=== PATIENT | female | born 1955 | race Two or more races ===

== ENCOUNTER 2024-07-01 15:01 | Outpatient (AMB) | payer OTHER, SELFPAY ==
--- NOTE | 2024-07-01 15:03 | MHC.PC.OV ---
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 Hammerer Tab Required: No Allergies cashew nut Allergy (Severe, Verified 07/01/24 15:09) Anaphylaxis peanuts Allergy (Severe, Uncoded 07/01/24 15:09) Anaphylaxis Medication List - Last Reconciled 07/01/24 by Nikolas Heredia MD atorvastatin 40 mg PO DAILY hydrochlorothiazide 25 mg PO DAILY lisinopril 40 mg PO DAILY metformin ER 1,000 mg PO BID Tobacco use date assessed: 07/01/24 Dental Screening Dental Screen Date: 07/01/24 Did you have a dental visit in the last 12 months?: No Did you have a dental problem in the last 6 months where you did not have access to dental care?: No Was dental information given to patient?: Yes HPI 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 ?? Prior PCP:? Mariah Montesinos [facility]. Saw Kristin Alicea [facility] Last office visit/CPE:? 2 yrs Acute issue(s):? ?? PMHx:?HTN, DM2, HLD SurgHx:? GB, Ventral Hernia FHx:?Mom: DM, Pancreatic CA. Dad: DM. Brothers: DM, Oldest Brother: Pancreatic CA. SocHx: Quit cigs > 20 yrs ago. No EtOH. No drugs PFSH Medical History (Updated 07/01/24 @ 15:57 by Nikolas Heredia MD) Hx of migraine headaches Diabetes High cholesterol High blood pressure Surgical History (Updated 07/01/24 @ 15:29 by Sammie Davidson) History of hernia repair Social History Housing: Apartment Patient Tobacco Use Status: Never used Tobacco e-Cigarette/Vaping Use: Never Used Second Hand Smoke Exposure: No service: No Current occupational status: retired Current occupational exposures/hazards: No Cognitive needs: No Hearing needs: No Vision needs: Yes Questionnaire PHQ-9 Over the last 2 weeks, how often have you been bothered by any of the following problems? 1. Little interest or pleasure in doing things: not at all 2. Feeling down, depressed, or hopeless: not at all 3. Trouble falling or staying asleep, or sleeping too much: not at all 4. Feeling tired or having little energy: nearly every day 5. Poor appetite or overeating: several days 6. Feeling bad about yourself - or that you are a failure or have let yourself or your family down: not at all 7. Trouble concentrating on things, such as reading the newspaper or watching television: nearly every day 8. Moving or speaking so slowly that other people could have noticed. Or the opposite - being so fidgety or restless that you have been moving around a lot more than usual: more than half the days 9. Thoughts that you would be better off or of hurting yourself in some way: not at all Total score: 9 Depression Screening Interpretation: Positive Depression Screening Done: Yes 57889 - PHQ-9 Billing: Yes Source: Developed by Drs. Ankit Davila, Gale Patricia, Jacob Mancilla and colleagues, with an educational iain from [employer]. Thrive Questionnaire Date Thrive assessed: 07/01/24 I am a: Patient What is your living situation today?: I do not have a steady places to live Within the past 12 months, did the food you bought not last and you didn't have the money to get more?: I choose not to answer this question Within the past 12 months, did you worry whether your food would run out before you got money to buy more?: I choose not to answer this question Do you have trouble paying for medicines?: No Do you have trouble getting transportation to medical appointments?: No Do you have trouble paying your heating and electricity bill?: I choose not to answer this question Do you have trouble taking care of your child, family member or friend?: I choose not to answer this question Do you have trouble with day-to-day activities such as bathing, preparing meals, shopping, managing finances, etc.?: I choose not to answer this question Are you currently unemployed and looking for a job?: No Are you interested in more education?: No Please select the resources that you would like help with: Housing/Residential Currently or been in a relationship where the following occur: I choose not to answer THRIVE Score: 1 AUDIT C Alcohol Use Questionnaire (AUDIT-C) 1. How often do you have a drink containing alcohol?: Never 3. How often do you have six or more drinks on one occasion?: Never Total Score: 0 HIMA-7 AMB Questionnaire HIMA-7 Date HIMA - 7 assessed: 07/01/24 Feeling nervous, anxious, or on edge: 0 = Not at all Not being able to stop or control worryin = Several days Worrying too much about different things: 2 = More than half the days Trouble relaxin = Nearly every day Being so restless that it is hard to sit still: 1 = Several days Becoming easily annoyed or irritable: 0 = Not at all Feeling afraid as if something awful might happen: 0 = Not at all Total HIMA-7 score (0-4 normal; 5-9 mild; 10-14 moderate; 15-21 severe): 7 Source: Developed by Drs. Ankit Davila, Gale Patricia, Jacob Mancilla and colleagues, with an educational iain from [employer]. HIMA-7 Assessment Billing HIMA-7 Assessment Tool: HIMA-7 Assessment 31890 Review of Systems Const Denies chills, Denies fatigue, Denies fever(s), Denies headache(s) and Denies weakness ENT Denies dizziness and Denies headache(s) Card Denies chest pain, Denies lightheadedness, Denies dyspnea and Denies other (Palpitations) Resp Denies cough, Denies dyspnea, Denies wheezing and Denies other ( shortness of breath) Musc Denies numbness and Denies tingling Neuro Denies dizziness, Denies headache(s), Denies numbness, Denies tingling, Denies paresthesias and Denies weakness Psych Denies anxiety and Denies depression Endo Denies fatigue Aller/Immun Denies wheezing Physical exam (Primary Care) Depression Screening Interpretation: Positive Currently or been in a relationship where the following occur: I choose not to answer Const General: no acute distress and well developed Nutritional Appearance: well nourished Orientation/consciousness: patient oriented x3 HENMT Head: Yes normocephalic and Yes atraumatic Eyes General: appearance normal, both eyes and all related structures Pupils: Equal, round and reactive pupils present EOM: EOMs intact bilaterally Resp Effort & Inspection: normal respiratory effort Auscultation: clear to auscultation bilaterally Cardio Rate: regular rate Rhythm: regular rhythm Heart sounds: S1 normal heart sound present, S2 normal heart sound present, no gallops, no murmurs and no rubs Neuro General: patient oriented x3 and gait normal Cranial nerves: Yes Equal, round and reactive pupils present Psych Affect: normal affect Coding Level of Care Code New Pt Level 3 (26646) Diagnoses Essential hypertension I10 Diabetes type 2 E11.9 Hyperlipidemia E78.5 Laboratory exam ordered as part of routine general medical examination Z00.00 SOB (shortness of breath) R06.02 Additional Codes HIMA-7 Assessment Billing - HIMA-7 Assessment Tool: HIMA-7 Assessment 46241 ([id number]) PHQ-9 - 27515 - PHQ-9 Billing: Yes ([id number]) Assessment & Plan Assessment & Plan (1) Essential hypertension: Code(s): I10 - Essential (primary) hypertension Category: Medical Plan: Blood?pressure?is?high.??Goal?is?less?than?140/90 She?has?been?off?of?her?medications.??Will?resume?these (2) Diabetes type 2: Code(s): E11.9 - Type 2 diabetes mellitus without complications Category: Medical Plan: Patient?has?been?off?of?metformin?since?April. A1c?is?7.8%.??Goal?is?less?than?7% Will?resume?metformin?at?500?mg?b.i.d.?and?will?add?glipizide?ER?5?mg?q.a.m. (3) Hyperlipidemia: Code(s): E78.5 - Hyperlipidemia, unspecified Category: Medical Plan: Check?labs Resume?atorvastatin (4) Laboratory exam ordered as part of routine general medical examination: Code(s): Z00.00 - Encounter for general adult medical examination without abnormal findings Category: Medical Plan: Check labs (5) SOB (shortness of breath): Code(s): R06.02 - Shortness of breath Category: Medical Plan: Complaint?of?SOB?without?chest?pain. Minimal?cough Lungs?are?clear?to?auscultation?bilaterally?with?good?air?movement Check?chest?x-ray Orders: Orders Comprehensive [place]. Panel Fast Today Z00.00 - Encounter for general adult medical examination without abnormal findings Lipid Panel Today Z00.00 - Encounter for general adult medical examination without abnormal findings XR chest 2V Today R06.02 - Shortness of breath Microalbumin, Random (w Creat) Today I10 - Essential (primary) hypertension TSH reflex Free T4 Today Z00.00 - Encounter for general adult medical examination without abnormal findings UA and rflx microscopic Today Z00.00 - Encounter for general adult medical examination without abnormal findings Hemoglobin A1c Today R73.01 - Impaired fasting glucose Medications: New metformin ER 500 mg PO BID 90 days 180 tabs 2RF hydrochlorothiazide 25 mg PO DAILY 90 days 90 tabs 3RF glipizide ER 5 mg PO QAM 90 days 90 tabs 2RF lisinopril 40 mg PO DAILY 90 days 90 tabs 3RF atorvastatin 40 mg PO DAILY 90 days 90 tabs 3RF
[2024-07-01 15:20] VITALS: BP 160/84; PULSE 66; RESP 16; TEMP 36.6; O2SAT 97; BMI 36.4
== END 2024-07-01 16:02 | disposition home or self-care (01) ==
PROVIDERS: PCP Family Medicine; Visit Provider Family Medicine
DX: I10 Essential (primary) hypertension (principal); E11.9 Type 2 diabetes mellitus without complications; E78.5 Hyperlipidemia, unspecified; Z00.00 Encounter for general adult medical examination without abnormal findings; R06.02 Shortness of breath

== ENCOUNTER → 2024-07-01 15:01 | Outpatient (BNVA) | payer OTHER, SELFPAY | PROVIDERS: PCP Family Medicine; Visit Provider Family Medicine | DX: Z00.00 Encounter for general adult medical examination without abnormal findings (principal); I10 Essential (primary) hypertension; E11.9 Type 2 diabetes mellitus without complications; E78.5 Hyperlipidemia, unspecified; R06.02 Shortness of breath | CPT/HCPCS: 96127 ==

== ENCOUNTER 2024-09-18 09:05 | Outpatient (AMB) | payer OTHER, SELFPAY ==
--- NOTE | 2024-09-18 09:06 | MHC.PC.OV ---
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 Hand Required: Yes Apprentice Painter Hand Language: Wardrobe Technician Name: pt refused Crew Boss: Present Accompanied by: Son Allergies cashew nut Allergy (Severe, Verified 09/18/24 09:12) Anaphylaxis peanuts Allergy (Severe, Uncoded 07/01/24 15:09) Anaphylaxis Medication List - Last Reconciled 09/18/24 by Nikolas Heredia MD atorvastatin 40 mg PO DAILY 90 days glipizide ER 5 mg PO QAM 90 days hydrochlorothiazide 25 mg PO DAILY 90 days lisinopril 40 mg PO DAILY 90 days metformin ER 500 mg PO BID 90 days Tobacco use date assessed: 07/01/24 Dental Screening Dental Screen Date: 07/01/24 HPI f/u DM, HTN HPI Details 68 y/o female presents to f/u DM, HTN. Blood pressure today 130/78. She is on lisinopril 40mg, HCTZ 25mg daily. She is on glipizide 5mg, metformin 500mg b.i.d. for her diabetes. A1c 8.0%. Reports ongoing shortness of breath. Recent chest x-ray was fine. [facility] Medical History (Updated 09/18/24 @ 09:59 by Nikolas Heredia MD) Hx of migraine headaches Diabetes High cholesterol High blood pressure Surgical History (Updated 07/01/24 @ 15:29 by Sammie Davidson MA) History of hernia repair Social History Housing: Apartment Patient Tobacco Use Status: Never used Tobacco e-Cigarette/Vaping Use: Never Used Second Hand Smoke Exposure: No service: No Current occupational status: retired Current occupational exposures/hazards: No Cognitive needs: No Hearing needs: No Vision needs: Yes Questionnaire Thrive Questionnaire Date Thrive assessed: 07/01/24 HIMA-7 AMB Questionnaire HIMA-7 Date HIMA - 7 assessed: 07/01/24 Source: Developed by Drs. Ankit Davila, Gale Patricia, Jacob Mancilla and colleagues, with an educational iain from [employer]. Review of Systems Const Denies chills, Denies fatigue, Denies fever(s), Denies headache(s) and Denies weakness ENT Denies dizziness and Denies headache(s) Card Reports dyspnea Resp Denies cough, Reports dyspnea, Denies wheezing and Denies other (shortness of breath) Musc Denies numbness and Denies tingling Neuro Denies dizziness, Denies headache(s), Denies numbness, Denies tingling and Denies weakness Psych Denies anxiety and Denies depression Endo Denies fatigue Aller/Immun Denies wheezing Physical exam (Primary Care) Vital Signs: Last Vital Signs Temp 98.1 F 09/18/24 09:13 Pulse 74 09/18/24 09:13 Resp 16 09/18/24 09:13 BP 130/78 09/18/24 09:13 Pulse Ox 95 09/18/24 09:13 Oxygen Delivery Method Room Air 09/18/24 09:13 BMI result Body Mass Index 37.2 Tobacco/Smoking Status: Tobacco use Status Tobacco use date assessed 07/01/24 09/18/24 09:07 Patient Tobacco Use Status Never used Tobacco 09/18/24 09:07 e-Cigarette/Vaping Use Never Used 09/18/24 09:07 Thrive Assessment: Date of Thrive Assessment Date Thrive assessed 07/01/24 09/18/24 09:07 Const General: well developed; No acute distress Nutritional Appearance: well nourished Orientation/consciousness: patient oriented x3 HENMT Head: Yes normocephalic and Yes atraumatic Eyes General: appearance normal, both eyes and all related structures Pupils: Equal, round and reactive pupils present EOM: EOMs intact bilaterally Resp Effort & Inspection: normal respiratory effort Auscultation: clear to auscultation bilaterally Cardio Rate: regular rate Rhythm: regular rhythm Heart sounds: S1 normal heart sound present, S2 normal heart sound present, no gallops, no murmurs and no rubs Neuro General: patient oriented x3 and gait normal Cranial nerves: Yes Equal, round and reactive pupils present Psych Affect: normal affect Coding Level of Care Code Est Pt Level 4 (87370) Diagnoses Essential hypertension I10 Diabetes type 2 E11.9 Hyperlipidemia E78.5 SOB (shortness of breath) R06.02 Sleep apnea G47.30 Assessment & Plan Assessment & Plan (1) Essential hypertension: Code(s): I10 - Essential (primary) hypertension Category: Medical Plan: Blood?pressure?is?improved?and?controlled?on?current?medication; lisinopril?40?mg?daily?and?hydrochlorothiazide?25?mg?daily. Goal?is?less?than?140/90 Continue?current?medications (2) Diabetes type 2: Code(s): E11.9 - Type 2 diabetes mellitus without complications Category: Medical Plan: Patient?had?been?off?her?medication?at?her?initial?visit?in?June. Has?now?resumed?metformin?500?mg?b.i.d.?and?glipizide?ER?5?mg?daily A1c?today: ?8.0%. Poor?control.??Goal?is?less?than?7.0% She?started?her?medication?regimen?about?2?months?ago?so should?be?close?to?steady?state?now Will?increase?metformin?from?500?mg?b.i.d.?to?750?mg?b.i.d. Close?follow-up;?will?have?her?return?about?2?months. (3) Hyperlipidemia: Code(s): E78.5 - Hyperlipidemia, unspecified Category: Medical Plan: LDL?cholesterol?157?is?by HDL?41 She?resumed?atorvastatin?which?she?will?continue (4) SOB (shortness of breath): Code(s): R06.02 - Shortness of breath Category: Medical Plan: Ongoing?shortness?of?breath Chest?x-ray?is?clear Patient?describes?2?different?situations.??She?gets?some?wheezing?with?cold?dry?air. She?also?notes?some?gasping and?awakening?at?night?with?discomfort-see?below Dry?an?albuterol?inhaler?for?the?wheezing.??Also?advised?humidified?air. (5) Sleep apnea: Code(s): G47.30 - Sleep apnea, unspecified Category: Medical Plan: Some?gasping?at?night?with?shortness?of?breath?and?some?chest?discomfort. EKG: ?Normal?sinus?rhythm,?normal?axis,?normal?intervals,?no?hypertrophy,?no?ST-T-wave?changes. Her?son?also?notes?that?she?falls?asleep?a?lot?during?the?day. Referred?to?Sleep?Medicine Orders: Referrals Sleep Medicine Referral G47.30 - Sleep apnea, unspecified Medications: New albuterol sulfate 90 mcg/actuation (Ventolin HFA) 2 puffs inhalation Q4-6H 30 days PRN 8.5 grams 1RF shortness of breath or wheezing humidifiers (Cool Mist Humidifier) Daily As directed, 999 days 1 ea 0RF J45.909 - Unspecified asthma, uncomplicated, R06.02 - Shortness of breath epinephrine (EpiPen 2-Santhosh) 0.3 mg (0.3 mL) IM Q4H 30 days PRN 2 ea 2RF anaphylaxis Changed From metformin ER 500 mg PO BID 90 days 180 tabs 2RF To metformin ER 750 mg (1.5 x 500 mg) PO BID 90 days 270 tabs 2RF
[2024-09-18 09:13] VITALS: BP 130/78; PULSE 74; RESP 16; TEMP 36.7; O2SAT 95; BMI 37.2
== END 2024-09-18 10:03 | disposition home or self-care (01) ==
LOC: HO.HMCFM 09:05
PROVIDERS: PCP Family Medicine; Visit Provider Family Medicine
DX: I10 Essential (primary) hypertension (principal); E11.9 Type 2 diabetes mellitus without complications; E78.5 Hyperlipidemia, unspecified; R06.02 Shortness of breath; G47.30 Sleep apnea, unspecified

== ENCOUNTER → 2024-09-18 09:05 | Outpatient (BNVA) | payer OTHER, SELFPAY | PROVIDERS: PCP Family Medicine; Visit Provider Family Medicine | DX: I10 Essential (primary) hypertension (principal); E11.9 Type 2 diabetes mellitus without complications; E78.5 Hyperlipidemia, unspecified; R06.02 Shortness of breath; G47.30 Sleep apnea, unspecified; Z79.84 Long term (current) use of oral hypoglycemic drugs; Z79.899 Other long term (current) drug therapy | CPT/HCPCS: 83036 ==